=== PATIENT | male | born 1980 | race Caucasian/White ===

== ENCOUNTER 2018-09-22 19:46 | Emergency (ER) | payer OTHER ==
[~2018-09-22] VITALS: Ht 160 cm; Wt 77.1 kg
[2018-09-23] MEDS ORDERED: METFORMIN HCL500 MG PO (01:55)
== END 2018-09-23 02:12 | disposition home or self-care (01) ==
LOC: ER 19:46
DX: E11.65 Type 2 diabetes mellitus with hyperglycemia (principal)